=== PATIENT | female | born 1980 | race African-American/Black ===

== ENCOUNTER 2016-12-20 20:19 | Emergency (ER) | payer OTHER ==
[2016-12-20 22:14] VITALS: BP 119/62
== END 2016-12-20 22:49 | disposition home or self-care (01) ==
LOC: ED 20:19
DX: M54.6 Pain in thoracic spine (principal); V43.92XA Unspecified car occupant injured in collision with other type car in traffic accident, initial encounter; Y93.89 Activity, other specified; Y99.8 Other external cause status; Y92.89 Other specified places as the place of occurrence of the external cause